=== PATIENT | male | born 1985 | race Caucasian/White ===

== ENCOUNTER 2018-01-28 14:41 | Inpatient (IN) | payer SELFPAY ==
[2018-01-28] VITALS (13 sets, daily range): BP systolic 110–129; BP diastolic 57–82; PULSE 72–91; RESP 18–30; TEMP 36–36.6; O2SAT 90–98
--- NOTE | 2018-01-28 15:21 | NUR.NOTE ---
on exam with MD pt. denies need for gang rider. Pt. admits to RLQ that started today, and a week or so of fevers, chills, diarrhea, difficulty breathing with exertion. Skin is pink, warm and dry.
[2018-01-28 15:34] LABS: Bilirubin Negative (Negative); Blood Negative (Negative); Clarity Clear; Glucose Negative (Negative); Ketones Negative (Negative); Leukocyte Esterase Negative (Negative); Nitrite Negative (Negative); Urobilinogen 0.2 EU/dL (Up TO 0.2); pH 5.5 (5-8)
--- NOTE | 2018-01-28 15:45 | DI.CT_ITS ---
SYMPTOM/DIAGNOSIS: RLQ PAIN, R/O APPENDICITIS CT ABDOMEN AND PELVIS: CT scan of the abdomen and pelvis was performed following the uneventful administration of intravenous contrast material. There are bilateral basilar infiltrates in the lower lobes. The liver, spleen, gallbladder, bile ducts, pancreas and adrenal glands are unremarkable. The kidneys show normal and symmetric enhancement. No evidence of a solid renal mass or obstruction. The urinary bladder is intact. The reproductive organs are unremarkable. The appendix appears dilated measuring 0.9 cm. Mild periappendiceal inflammatory changes are seen. No abscess or free air is present. The remainder of the bowel is unremarkable. No acute abnormality is seen in the bones. IMPRESSION: 1. Findings to suggest concern for early acute appendicitis. No abscess or free air. 2. Bilateral lower lobe infiltrates which may represent atelectasis or pneumonia.
[2018-01-28 15:47] LABS: Abs Immature Grans 0.02 k/cumm (0.0-0.09); Absolute Basophil Count 0.01 k/cumm (0.0-0.2); Absolute Eosinophil Count 0.02 k/cumm (0.0-0.7); Absolute Lymphocyte Count 1.11 k/cumm (1.2-3.4); Absolute Monocyte Count 0.53 k/cumm (0.11-0.7); Absolute Neutrophil Count 8.95 k/cumm (1.2-6.7); Basophils % 0.1; Eosinophils % 0.2; HCT 45.5 % (40.0-50.0); HGB 15.3 g/dL (13.5-17.5); Immature Grans % 0.2; Lymphocytes % 10.4; Mean Corp. HGB Concentration 33.6 g/dL (32.0-36.0); Mean Corpuscular Volume 89.2 fL (80-95); Mean Platelet Volume 12.9 fL (8.0-11.0); Neutrophils % 84.1; Platelet Count 172 x1000/uL (130-400); RBC Distribution Width 13.7 % (11.8-14.1); White Blood Cell Count 10.64 k/cumm (4.4-10.8)
--- NOTE | 2018-01-28 15:55 | DI.RAD_ITS ---
SYMPTOM/DIAGNOSIS: COUGH, SOB, R/O ACUTE DISEASE CHEST X-RAY: PA and lateral. No priors Heart size and pulmonary vasculature are within normal limits. There are hazy densities seen in the lower lobes bilaterally with minimal pleural visual thickening. No gross effusions or pneumothoraces are identified. The bones are intact. IMPRESSION: Findings suspicious for interstitial lung disease. This may represent acute disease. Chronic disease cannot be excluded.
[2018-01-28 15:59] LABS: ALT 22 U/L (12-78); AST 26 U/L (15-37); Albumin 3.3 g/dL (3.4-5.0); Alkaline Phosphatase 98 U/L (46-116); Anion Gap 8.6 mmol/L (3-11); BUN 14 mg/dL (7-18); Bilirubin, Total 0.5 mg/dL (0.2-1.0); CO2 25.4 mmol/L (21.0-32.0); Calcium 8.6 mg/dL (8.5-10.1); Chloride 102 mmol/L (98-107); Glucose 101 mg/dL (70-100); Sodium 136 mmol/L (136-145)
--- NOTE | 2018-01-28 16:19 | DI.VRAD_ITS ---
EXAM: CT Abdomen and Pelvis With Contrast EXAM DATE/TIME: 01/28/2018 3:56 PM CLINICAL HISTORY: 32 years old, male; Pain; Abdominal pain; Localized; Right lower quadrant (rlq); Patient HX: Rlq abd pain, R/O appendicitis. ; Additional info: Best images obtained, patient unable to follow breathing instructions after telling him to hold breath during exam. Repeated exam best images obtained. TECHNIQUE: Axial computed tomography images of the abdomen and pelvis with intravenous contrast. All CT scans at this facility use at least one of these dose optimization techniques: automated exposure control; mA and/or kV adjustment per patient size (includes targeted exams where dose is matched to clinical indication); or iterative reconstruction. Coronal and sagittal reformatted images were created and reviewed. CONTRAST: 100 ml of omnipaque 350 administered intravenously. COMPARISON: No relevant prior studies available. FINDINGS: Lower thorax: Bilateral lower lobe opacities are present and consistent with dependent atelectasis and/or posterior consolidation. ABDOMEN: Liver: Unremarkable. No mass. Gallbladder and bile ducts: Unremarkable. No calcified stones. No ductal dilation. Pancreas: Unremarkable. No ductal dilation. Spleen: Unremarkable. No splenomegaly. Adrenals: Normal. No mass. Kidneys and ureters: Unremarkable. No stones. No hydronephrosis. Stomach and bowel: Unremarkable. No obstruction. No mucosal thickening. Appendix: The appendix is dilated and there is mild stranding and haziness in the periappendiceal fat. The findings are consistent with early acute appendicitis. PELVIS: Bladder: Unremarkable as visualized. Reproductive: Unremarkable as visualized. ABDOMEN and PELVIS: Intraperitoneal space: Unremarkable. No free air. No significant fluid collection. Bones/joints: No acute fracture. Soft tissues: Unremarkable. Vasculature: Unremarkable. No abdominal aortic aneurysm. Lymph nodes: Mild bilateral hilar lymphadenopathy is present. IMPRESSION: 1. Early acute appendicitis. 2. Bilateral lower lobe atelectasis/consolidation. Dictated and Authenticated by: Isauro Pro MD. Ordering:SHONDA Smith MD
--- NOTE | 2018-01-28 16:19 | W.ED.GENAD ---
Discharge Plan Disposition Patient Disposition: [facility] INPATIENT Condition: Stable Discharge Details Chief Complaint: GenMedical Clinical Impression: Acute appendicitis, Lung consolidation Attending Provider: Shayan Gutierres Primary Care Provider: Chelsie Gonzalez ED Provider: Sarah Cloud Medical Decision Making 32yo M with no past medical history who presents with sore throat for 1-1/2 weeks, hot and cold chills, and right lower quadrant abdominal pain with vomiting diarrhea since last night. Normal ENT exam. No submandibular swelling. No stridor, airway intact. Diminished breath sounds at bases bilaterally. No wheezing or accessory muscle use. Patient has tenderness palpation in the right lower quadrant with rebound tenderness. No rigidity. Differential diagnosis includes viral syndrome, pneumonia, acute appendicitis, gastritis, gastroenteritis. Will place an IV, bolus IV fluids, labs, urinalysis, chest x-ray, CT abdomen and pelvis, GI cocktail. Pt speaks malaysian as primary language but also speaks maltese. He is able to verbalize back to me the plan and he declines park interpreter at this time. 1620 --labs and imaging reviewed. Labs unremarkable. Normal white blood cell count. Chest x-ray notes possible mild interstitial lung disease, question of acute versus chronic. CT abdomen notes an early acute appendicitis. Imaging was discussed [facility]rad radiologist - chest x-ray may be an underlying interstitial process, atelectasis, dependent edema or pneumonia. Question possible sarcoidosis and again unsure if this is acute or chronic. In the setting of normal vitals, labs, this may not be acute. Radiologist does not see utility in CT chest at this time. Not clinically c/w PE. 1630 -- Surgeon was paged and she is currently in the operating room and will call back. 1715 -- d/w Dr. Gutierres who is in the emergency department. D/w pt through park interpreter so he understand the plan of surgery. As pt has normal vitals, wbc, no respiratory distress, will plan for outpatient f/u of lung/cxr findings. Was able to discuss again the plan with patient, this time through an park interpreter so he fully understood. With further questioning of his symptoms, patient denied any chest pain or shortness of breath at this time, but stated that he occasionally felt pain with deep breath. When I discussed with vrad radiologist earlier, he did not think any findings in chest on ct abdomen were c/w PE. However, that would be concern regarding history. Pt has no tachycardia, normal RR and O2 sat and no PE risk factors. Wells score low. PERC negative. Do not want to expose pt to another CT with contrast within a 24 hour period. Will obtain a d dimer. 1745 --d-dimer negative. Medical Records Medical records reviewed: Yes I reviewed the patient's medical records. Imaging Data Radiologic Study: Attestation: I personally reviewed and interpreted this imaging study as follows: Radiologist's impression: XR Chest, 2 Views EXAM DATE/TIME: 01/28/2018 4:03 PM CLINICAL HISTORY: 32 years old, male; Signs and symptoms; Cough and shortness of breath; Additional info: Best images obtained, patient unable to follow breathing instructions after telling him to hold breath during exam. Repeated exam best images obtained. TECHNIQUE: XR of the chest, 2 views. COMPARISON: No relevant prior studies available. FINDINGS: Tubes, catheters and devices: Lungs: Mild hazy density in the posterior lower lobes bilaterally. Mildly prominent reticular markings and minimal fissure thickening. There is questionable minimal septal line thickening in the right lateral lower lung zone. The findings raise the suspicion for an underlying interstitial lung process (acute versus chronic). Pleural space: No pleural effusion or pneumothorax. Heart/Mediastinum: The cardiomediastinal silhouette and pulmonary vasculature are within normal limits. Bones/joints: Unremarkable. IMPRESSION: Findings suspicious for mild interstitial lung disease (acute versus chronic). Radiologic Study #2: Attestation: I personally reviewed and interpreted this imaging study as follows: Radiologist's impression: CT Abdomen and Pelvis With Contrast EXAM DATE/TIME: 01/28/2018 3:56 PM FINDINGS: AUDREY ELLER Preliminary Radiology Report GEAR NICKER (QA) DISCREPANCY? If there is a discrepancy between the preliminary and final interpretation, please notify [facility] via [email or web address]. If you do not have access to our QA portal, call our QA team at [phone] CONFIDENTIALITY STATEMENT This report is intended only for the use of the referring physician, and only in accordance with law, If you received this in error, call [phone] Page 2 of 2 Lower thorax: Bilateral lower lobe opacities are present and consistent with dependent atelectasis and/or posterior consolidation. ABDOMEN: Liver: Unremarkable. No mass. Gallbladder and bile ducts: Unremarkable. No calcified stones. No ductal dilation. Pancreas: Unremarkable. No ductal dilation. Spleen: Unremarkable. No splenomegaly. Adrenals: Normal. No mass. Kidneys and ureters: Unremarkable. No stones. No hydronephrosis. Stomach and bowel: Unremarkable. No obstruction. No mucosal thickening. Appendix: The appendix is dilated and there is mild stranding and haziness in the periappendiceal fat. The findings are consistent with early acute appendicitis. PELVIS: Bladder: Unremarkable as visualized. Reproductive: Unremarkable as visualized. ABDOMEN and PELVIS: Intraperitoneal space: Unremarkable. No free air. No significant fluid collection. Bones/joints: No acute fracture. Soft tissues: Unremarkable. Vasculature: Unremarkable. No abdominal aortic aneurysm. Lymph nodes: Mild bilateral hilar lymphadenopathy is present. IMPRESSION: 1. Early acute appendicitis. 2. Bilateral lower lobe atelectasis/consolidation. Lab Data Lab results reviewed: Yes I reviewed the patient's lab results. 01/28/18 16:30 Pharynx Throat Culture - Pending Laboratory Tests Range/Units 01/28/18 01/28/18 01/28/18 15:31 15:40 15:40 WBC (4.4-10.8) k/cumm 10.64 RBC (4.50-6.00) m/cumm 5.10 Hgb (13.5-17.5) g/dL 15.3 Hct (40.0-50.0) % 45.5 MCV (80-95) fL 89.2 MCH (27.0-33.0) pg 30.0 MCHC (32.0-36.0) g/dL 33.6 RDW (11.8-14.1) % 13.7 Plt Count (130-400) x1000/uL 172 MPV (8.0-11.0) fL 12.9 H Immature Gran % 0.2 Neutrophils % 84.1 Lymphocytes % 10.4 Monocytes % 5.0 Eosinophils % 0.2 Basophils % 0.1 Absolute Neutrophils (1.2-6.7) k/cumm 8.95 H Absolute Lymphocytes (1.2-3.4) k/cumm 1.11 L Absolute Monocytes (0.11-0.7) k/cumm 0.53 Absolute Eosinophils (0.0-0.7) k/cumm 0.02 Absolute Basophils (0.0-0.2) k/cumm 0.01 Sodium (136-145) mmol/L 136 Potassium (3.5-5.1) mmol/L 4.0 Chloride (98-107) mmol/L 102 Carbon Dioxide (21.0-32.0) mmol/L 25.4 Anion Gap (3-11) mmol/L 8.6 BUN (7-18) mg/dL 14 Creatinine (0.70-1.30) mg/dL 1.00 Estimated GFR/1.73 m2 (mL/min/1.73m2) >= 60.00 Glucose (70-100) mg/dL 101 H Calcium (8.5-10.1) mg/dL 8.6 Total Bilirubin (0.2-1.0) mg/dL 0.5 AST (15-37) U/L 26 ALT (12-78) U/L 22 Alkaline Phosphatase (46-116) U/L 98 Total Protein (6.4-8.2) g/dL 9.0 H Albumin (3.4-5.0) g/dL 3.3 L Urine Color (Yellow) Yellow Urine Clarity Clear Urine pH (5-8) 5.5 Ur Specific Randolph (1.005-1.025) 1.010 Urine Protein (Negative) mg/dL Negative Urine Ketones (Negative) mg/dL Negative Urine Blood (Negative) Negative Urine Nitrite (Negative) Negative Urine Bilirubin (Negative) Negative Urine Urobilinogen (Up TO 0.2) EU/dL 0.2 Ur Leukocyte Esterase (Negative) Negative Urine Glucose (Negative) mg/dL Negative HPI General Mode of arrival: ambulatory. Date/Time Provider Initiated Documentation: 01/28/18 15:10. Limitations to Documentation: no limitations. Information obtained by: patient. HPI Narrative: 32-year-old male with no past medical history who presents with multiple complaints. Complaining of right lower quadrant pain starting today. Also admits to vomiting and diarrhea two times each since last night. Also complaining of sore throat for the past 1-1/2 weeks, hot and cold chills, occasional cough and shortness of breath. Patient has been taking ibuprofen. Patient denies any rash. 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 Related Data Home Medications Medication Instructions Recorded Confirmed bisacodyl 5 mg PO ONCE #10 tabec 11/04/12 ondansetron HCl 4 mg PO Q6H #10 tab 11/04/12 Previous Rx's Medication Instructions Recorded bisacodyl 5 mg PO ONCE #10 tabec 11/04/12 ondansetron HCl 4 mg PO Q6H #10 tab 11/04/12 Allergies Allergy/AdvReac Type Severity Reaction Status Date / Time No Known Allergies Allergy Unverified 11/04/12 15:00 General Stated Complaint: GenMedical NOREEN: 3 Review of Systems Review of Systems All systems reviewed & are unremarkable except as noted in HPI and below Constitutional Reports as per HPI, Reports chills and Denies fever(s) Eyes Denies blurry vision ENT Denies dizziness, Denies sore throat and Denies throat swelling Cardiovascular Denies chest pain and Reports dyspnea Respiratory Reports cough and Reports dyspnea Gastrointestinal Reports abdominal pain, Reports diarrhea and Reports vomiting Genitourinary Denies hematuria and Denies dysuria Musculoskeletal Denies back pain and Denies numbness Integumentary/Breasts Denies lesions and Denies rash Neurologic Denies dizziness and Denies numbness Allergic/Immunologic Denies throat swelling PFSH Social History Smoking/Tobacco Use Status: Never alcohol intake: current alcohol intake frequency: a few times a month substance use type: does not use Exam Const General: cooperative, healthy appearing and no acute distress HENMT Head: normal to inspection Face and sinus: normal facial exam Eyes General: appearance normal, both eyes and all related structures Pupils: PERRL EOM: EOM intact bilaterally Neck Neck: normal visual inspection and No submandibular swelling Lymphatic: no lymphadenopathy noted Chest Chest: normal inspection of the chest and no tenderness Resp Effort & Inspection: normal respiratory effort and able to speak in complete sentences Auscultation: clear to auscultation bilaterally Cardio Rate: regular rate Rhythm: regular rhythm GI Inspection: normal to inspection Palpation: soft, not firm, not rigid and tender in the RLQ and with rebound tenderness Auscultation: normal bowel sounds Male General Exam: Yes normal external exam Skin General skin exam: no rashes or lesions noted Neuro General: alert, awake and oriented x3 Cognition: normal cognition Speech: speech normal Motor: muscle tone normal throughout Sensory Exam: no sensory deficits noted Extrem General: normal to inspection, full ROM, normal capillary refill and no edema Psych Appearance: grossly normal Mental Status: mental status grossly normal Speech and Movement: speech and movement normal Affect: normal affect Course Vital Signs Temperature 97.9 F 01/28/18 15:01 Pulse 91 H 01/28/18 15:01 Respiratory Rate 18 01/28/18 15:01 Blood Pressure 110/65 01/28/18 15:01 Pulse Oximetry 97 01/28/18 15:01 Temperature 97.9 F 01/28/18 15:01 Temperature Source Temporal Artery Scan 01/28/18 15:01 Pulse 91 H 01/28/18 15:01 Respiratory Rate 18 01/28/18 15:01 Respiratory Effort 01/28/18 15:23 Respiratory Depth Normal 01/28/18 15:23 Respiratory Pattern Normal 01/28/18 15:23 Blood Pressure 110/65 01/28/18 15:01 Blood Pressure Position Sitting 01/28/18 15:01 Pulse Oximetry 97 01/28/18 15:01 Oxygen Delivery Method Room Air 01/28/18 15:01 Oxygen Flow Rate 0 01/28/18 15:01 Lab/Test Results Lab/Test Results: 01/28/18 16:18 Pharynx Throat Culture - Pending Laboratory Tests Range/Units 01/28/18 01/28/18 01/28/18 15:31 15:40 15:40 WBC (4.4-10.8) k/cumm 10.64 RBC (4.50-6.00) m/cumm 5.10 Hgb (13.5-17.5) g/dL 15.3 Hct (40.0-50.0) % 45.5 MCV (80-95) fL 89.2 MCH (27.0-33.0) pg 30.0 MCHC (32.0-36.0) g/dL 33.6 RDW (11.8-14.1) % 13.7 Plt Count (130-400) x1000/uL 172 MPV (8.0-11.0) fL 12.9 H Immature Gran % 0.2 Neutrophils % 84.1 Lymphocytes % 10.4 Monocytes % 5.0 Eosinophils % 0.2 Basophils % 0.1 Absolute Neutrophils (1.2-6.7) k/cumm 8.95 H Absolute Lymphocytes (1.2-3.4) k/cumm 1.11 L Absolute Monocytes (0.11-0.7) k/cumm 0.53 Absolute Eosinophils (0.0-0.7) k/cumm 0.02 Absolute Basophils (0.0-0.2) k/cumm 0.01 Sodium (136-145) mmol/L 136 Potassium (3.5-5.1) mmol/L 4.0 Chloride (98-107) mmol/L 102 Carbon Dioxide (21.0-32.0) mmol/L 25.4 Anion Gap (3-11) mmol/L 8.6 BUN (7-18) mg/dL 14 Creatinine (0.70-1.30) mg/dL 1.00 Estimated GFR/1.73 m2 (mL/min/1.73m2) >= 60.00 Glucose (70-100) mg/dL 101 H Calcium (8.5-10.1) mg/dL 8.6 Total Bilirubin (0.2-1.0) mg/dL 0.5 AST (15-37) U/L 26 ALT (12-78) U/L 22 Alkaline Phosphatase (46-116) U/L 98 Total Protein (6.4-8.2) g/dL 9.0 H Albumin (3.4-5.0) g/dL 3.3 L Urine Color (Yellow) Yellow Urine Clarity Clear Urine pH (5-8) 5.5 Ur Specific Randolph (1.005-1.025) 1.010 Urine Protein (Negative) mg/dL Negative Urine Ketones (Negative) mg/dL Negative Urine Blood (Negative) Negative Urine Nitrite (Negative) Negative Urine Bilirubin (Negative) Negative Urine Urobilinogen (Up TO 0.2) EU/dL 0.2 Ur Leukocyte Esterase (Negative) Negative Urine Glucose (Negative) mg/dL Negative POC Strep Test-LOUIE(Rapid) Start: 01/28/18 15:33 Freq: .Rapid Strep Test Status: Active Protocol: Document 01/28/18 16:04 MP (Rec: 01/28/18 16:04 [email or web address]) Strep test-LOUIE(Rapid)-POC POC-Strep test-LOUIE (Rapid) Negative POC-Strep test-LOUIE (Rapid) Negative
--- NOTE | 2018-01-28 16:22 | ED.GENADUL_ITS ---
Discharge Plan Disposition Patient Disposition: [facility] INPATIENT Condition: Stable Discharge Details Chief Complaint: GenMedical Clinical Impression: Acute appendicitis, Lung consolidation Attending Provider: Shayan Gutierres Primary Care Provider: Chelsie Gonzalez ED Provider: Sarah Cloud Medical Decision Making 32yo M with no past medical history who presents with sore throat for 1-1/2 weeks, hot and cold chills, and right lower quadrant abdominal pain with vomiting diarrhea since last night. Normal ENT exam. No submandibular swelling. No stridor, airway intact. Diminished breath sounds at bases bilaterally. No wheezing or accessory muscle use. Patient has tenderness palpation in the right lower quadrant with rebound tenderness. No rigidity. Differential diagnosis includes viral syndrome, pneumonia, acute appendicitis, gastritis, gastroenteritis. Will place an IV, bolus IV fluids, labs, urinalysis, chest x-ray, CT abdomen and pelvis, GI cocktail. Pt speaks estonian as primary language but also speaks tanzanian. He is able to verbalize back to me the plan and he declines rn medical surgical at this time. 1620 --labs and imaging reviewed. Labs unremarkable. Normal white blood cell count. Chest x-ray notes possible mild interstitial lung disease, question of acute versus chronic. CT abdomen notes an early acute appendicitis. Imaging was discussed vrad radiologist - chest x-ray may be an underlying interstitial process, atelectasis, dependent edema or pneumonia. Question possible sarcoidosis and again unsure if this is acute or chronic. In the setting of normal vitals, labs, this may not be acute. Radiologist does not see utility in CT chest at this time. Not clinically c/w PE. 1630 -- Surgeon was paged and she is currently in the operating room and will call back. 1715 -- d/w Dr. Gutierres who is in the emergency department. D/w pt through rn medical surgical so he understand the plan of surgery. As pt has normal vitals, wbc, no respiratory distress, will plan for outpatient f/u of lung/cxr findings. Was able to discuss again the plan with patient, this time through an rn medical surgical so he fully understood. With further questioning of his symptoms, patient denied any chest pain or shortness of breath at this time, but stated that he occasionally felt pain with deep breath. When I discussed with vrad radiologist earlier, he did not think any findings in chest on ct abdomen were c/w PE. However, that would be concern regarding history. Pt has no tachycardia, normal RR and O2 sat and no PE risk factors. Wells score low. PERC negative. Do not want to expose pt to another CT with contrast within a 24 hour period. Will obtain a d dimer. 1745 --d-dimer negative. Medical Records Medical records reviewed: Yes I reviewed the patient's medical records. Imaging Data Radiologic Study: Attestation: I personally reviewed and interpreted this imaging study as follows: Radiologist's impression: XR Chest, 2 Views EXAM DATE/TIME: 01/28/2018 4:03 PM CLINICAL HISTORY: 32 years old, male; Signs and symptoms; Cough and shortness of breath; Additional info: Best images obtained, patient unable to follow breathing instructions after telling him to hold breath during exam. Repeated exam best images obtained. TECHNIQUE: XR of the chest, 2 views. COMPARISON: No relevant prior studies available. FINDINGS: Tubes, catheters and devices: Lungs: Mild hazy density in the posterior lower lobes bilaterally. Mildly prominent reticular markings and minimal fissure thickening. There is questionable minimal septal line thickening in the right lateral lower lung zone. The findings raise the suspicion for an underlying interstitial lung process (acute versus chronic). Pleural space: No pleural effusion or pneumothorax. Heart/Mediastinum: The cardiomediastinal silhouette and pulmonary vasculature are within normal limits. Bones/joints: Unremarkable. IMPRESSION: Findings suspicious for mild interstitial lung disease (acute versus chronic). Radiologic Study #2: Attestation: I personally reviewed and interpreted this imaging study as follows: Radiologist's impression: CT Abdomen and Pelvis With Contrast EXAM DATE/TIME: 01/28/2018 3:56 PM FINDINGS: AUDREY ELLER Preliminary Radiology Report [employer] (QA) DISCREPANCY? If there is a discrepancy between the preliminary and final interpretation, please notify [facility] via [email or web address]. If you do not have access to our QA portal, call our QA team at [phone] CONFIDENTIALITY STATEMENT This report is intended only for the use of the referring physician, and only in accordance with law, If you received this in error, call [phone] Page 2 of 2 Lower thorax: Bilateral lower lobe opacities are present and consistent with dependent atelectasis and/or posterior consolidation. ABDOMEN: Liver: Unremarkable. No mass. Gallbladder and bile ducts: Unremarkable. No calcified stones. No ductal dilation. Pancreas: Unremarkable. No ductal dilation. Spleen: Unremarkable. No splenomegaly. Adrenals: Normal. No mass. Kidneys and ureters: Unremarkable. No stones. No hydronephrosis. Stomach and bowel: Unremarkable. No obstruction. No mucosal thickening. Appendix: The appendix is dilated and there is mild stranding and haziness in the periappendiceal fat. The findings are consistent with early acute appendicitis. PELVIS: Bladder: Unremarkable as visualized. Reproductive: Unremarkable as visualized. ABDOMEN and PELVIS: Intraperitoneal space: Unremarkable. No free air. No significant fluid collection. Bones/joints: No acute fracture. Soft tissues: Unremarkable. Vasculature: Unremarkable. No abdominal aortic aneurysm. Lymph nodes: Mild bilateral hilar lymphadenopathy is present. IMPRESSION: 1. Early acute appendicitis. 2. Bilateral lower lobe atelectasis/consolidation. Lab Data Lab results reviewed: Yes I reviewed the patient's lab results. 01/28/18 16:30 Pharynx Throat Culture - Pending Laboratory Tests Range/Units 01/28/18 01/28/18 01/28/18 15:31 15:40 15:40 WBC (4.4-10.8) k/cumm 10.64 RBC (4.50-6.00) m/cumm 5.10 Hgb (13.5-17.5) g/dL 15.3 Hct (40.0-50.0) % 45.5 MCV (80-95) fL 89.2 MCH (27.0-33.0) pg 30.0 MCHC (32.0-36.0) g/dL 33.6 RDW (11.8-14.1) % 13.7 Plt Count (130-400) x1000/uL 172 MPV (8.0-11.0) fL 12.9 H Immature Gran % 0.2 Neutrophils % 84.1 Lymphocytes % 10.4 Monocytes % 5.0 Eosinophils % 0.2 Basophils % 0.1 Absolute Neutrophils (1.2-6.7) k/cumm 8.95 H Absolute Lymphocytes (1.2-3.4) k/cumm 1.11 L Absolute Monocytes (0.11-0.7) k/cumm 0.53 Absolute Eosinophils (0.0-0.7) k/cumm 0.02 Absolute Basophils (0.0-0.2) k/cumm 0.01 Sodium (136-145) mmol/L 136 Potassium (3.5-5.1) mmol/L 4.0 Chloride (98-107) mmol/L 102 Carbon Dioxide (21.0-32.0) mmol/L 25.4 Anion Gap (3-11) mmol/L 8.6 BUN (7-18) mg/dL 14 Creatinine (0.70-1.30) mg/dL 1.00 Estimated GFR/1.73 m2 (mL/min/1.73m2) >= 60.00 Glucose (70-100) mg/dL 101 H Calcium (8.5-10.1) mg/dL 8.6 Total Bilirubin (0.2-1.0) mg/dL 0.5 AST (15-37) U/L 26 ALT (12-78) U/L 22 Alkaline Phosphatase (46-116) U/L 98 Total Protein (6.4-8.2) g/dL 9.0 H Albumin (3.4-5.0) g/dL 3.3 L Urine Color (Yellow) Yellow Urine Clarity Clear Urine pH (5-8) 5.5 Ur Specific [place] (1.005-1.025) 1.010 Urine Protein (Negative) mg/dL Negative Urine Ketones (Negative) mg/dL Negative Urine Blood (Negative) Negative Urine Nitrite (Negative) Negative Urine Bilirubin (Negative) Negative Urine Urobilinogen (Up TO 0.2) EU/dL 0.2 Ur Leukocyte Esterase (Negative) Negative Urine Glucose (Negative) mg/dL Negative HPI General Mode of arrival: ambulatory . Date/Time Provider Initiated Documentation: 01/28/18 15:10 . Limitations to Documentation: no limitations . Information obtained by: patient . HPI Narrative: 32-year-old male with no past medical history who presents with multiple complaints. Complaining of right lower quadrant pain starting today. Also admits to vomiting and diarrhea two times each since last night. Also complaining of sore throat for the past 1-1/2 weeks, hot and cold chills, occasional cough and shortness of breath. Patient has been taking ibuprofen. Patient denies any rash. 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 Related Data Home Medications Medication Instructions Recorded Confirmed bisacodyl 5 mg PO ONCE #10 tabec 11/04/12 ondansetron HCl 4 mg PO Q6H #10 tab 11/04/12 Previous Rx's Medication Instructions Recorded bisacodyl 5 mg PO ONCE #10 tabec 11/04/12 ondansetron HCl 4 mg PO Q6H #10 tab 11/04/12 Allergies Allergy/AdvReac Type Severity Reaction Status Date / Time No Known Allergies Allergy Unverified 11/04/12 15:00 General Stated Complaint: GenMedical NOREEN: 3 Review of Systems Review of Systems All systems reviewed & are unremarkable except as noted in HPI and below Constitutional Reports as per HPI, Reports chills and Denies fever(s) Eyes Denies blurry vision ENT Denies dizziness, Denies sore throat and Denies throat swelling Cardiovascular Denies chest pain and Reports dyspnea Respiratory Reports cough and Reports dyspnea Gastrointestinal Reports abdominal pain, Reports diarrhea and Reports vomiting Genitourinary Denies hematuria and Denies dysuria Musculoskeletal Denies back pain and Denies numbness Integumentary/Breasts Denies lesions and Denies rash Neurologic Denies dizziness and Denies numbness Allergic/Immunologic Denies throat swelling PFSH Social History Smoking/Tobacco Use Status: Never alcohol intake: current alcohol intake frequency: a few times a month substance use type: does not use Exam Const General: cooperative, healthy appearing and no acute distress HENMT Head: normal to inspection Face and sinus: normal facial exam Eyes General: appearance normal, both eyes and all related structures Pupils: PERRL EOM: EOM intact bilaterally Neck Neck: normal visual inspection and No submandibular swelling Lymphatic: no lymphadenopathy noted Chest Chest: normal inspection of the chest and no tenderness Resp Effort & Inspection: normal respiratory effort and able to speak in complete sentences Auscultation: clear to auscultation bilaterally Cardio Rate: regular rate Rhythm: regular rhythm GI Inspection: normal to inspection Palpation: soft, not firm, not rigid and tender in the RLQ and with rebound tenderness Auscultation: normal bowel sounds Male General Exam: Yes normal external exam Skin General skin exam: no rashes or lesions noted Neuro General: alert, awake and oriented x3 Cognition: normal cognition Speech: speech normal Motor: muscle tone normal throughout Sensory Exam: no sensory deficits noted Extrem General: normal to inspection, full ROM, normal capillary refill and no edema Psych Appearance: grossly normal Mental Status: mental status grossly normal Speech and Movement: speech and movement normal Affect: normal affect Course Vital Signs Temperature 97.9 F 01/28/18 15:01 Pulse 91 H 01/28/18 15:01 Respiratory Rate 18 01/28/18 15:01 Blood Pressure 110/65 01/28/18 15:01 Pulse Oximetry 97 01/28/18 15:01 Temperature 97.9 F 01/28/18 15:01 Temperature Source Temporal Artery Scan 01/28/18 15:01 Pulse 91 H 01/28/18 15:01 Respiratory Rate 18 01/28/18 15:01 Respiratory Effort 01/28/18 15:23 Respiratory Depth Normal 01/28/18 15:23 Respiratory Pattern Normal 01/28/18 15:23 Blood Pressure 110/65 01/28/18 15:01 Blood Pressure Position Sitting 01/28/18 15:01 Pulse Oximetry 97 01/28/18 15:01 Oxygen Delivery Method Room Air 01/28/18 15:01 Oxygen Flow Rate 0 01/28/18 15:01 Lab/Test Results Lab/Test Results: 01/28/18 16:18 Pharynx Throat Culture - Pending Laboratory Tests Range/Units 01/28/18 01/28/18 01/28/18 15:31 15:40 15:40 WBC (4.4-10.8) k/cumm 10.64 RBC (4.50-6.00) m/cumm 5.10 Hgb (13.5-17.5) g/dL 15.3 Hct (40.0-50.0) % 45.5 MCV (80-95) fL 89.2 MCH (27.0-33.0) pg 30.0 MCHC (32.0-36.0) g/dL 33.6 RDW (11.8-14.1) % 13.7 Plt Count (130-400) x1000/uL 172 MPV (8.0-11.0) fL 12.9 H Immature Gran % 0.2 Neutrophils % 84.1 Lymphocytes % 10.4 Monocytes % 5.0 Eosinophils % 0.2 Basophils % 0.1 Absolute Neutrophils (1.2-6.7) k/cumm 8.95 H Absolute Lymphocytes (1.2-3.4) k/cumm 1.11 L Absolute Monocytes (0.11-0.7) k/cumm 0.53 Absolute Eosinophils (0.0-0.7) k/cumm 0.02 Absolute Basophils (0.0-0.2) k/cumm 0.01 Sodium (136-145) mmol/L 136 Potassium (3.5-5.1) mmol/L 4.0 Chloride (98-107) mmol/L 102 Carbon Dioxide (21.0-32.0) mmol/L 25.4 Anion Gap (3-11) mmol/L 8.6 BUN (7-18) mg/dL 14 Creatinine (0.70-1.30) mg/dL 1.00 Estimated GFR/1.73 m2 (mL/min/1.73m2) >= 60.00 Glucose (70-100) mg/dL 101 H Calcium (8.5-10.1) mg/dL 8.6 Total Bilirubin (0.2-1.0) mg/dL 0.5 AST (15-37) U/L 26 ALT (12-78) U/L 22 Alkaline Phosphatase (46-116) U/L 98 Total Protein (6.4-8.2) g/dL 9.0 H Albumin (3.4-5.0) g/dL 3.3 L Urine Color (Yellow) Yellow Urine Clarity Clear Urine pH (5-8) 5.5 Ur Specific [place] (1.005-1.025) 1.010 Urine Protein (Negative) mg/dL Negative Urine Ketones (Negative) mg/dL Negative Urine Blood (Negative) Negative Urine Nitrite (Negative) Negative Urine Bilirubin (Negative) Negative Urine Urobilinogen (Up TO 0.2) EU/dL 0.2 Ur Leukocyte Esterase (Negative) Negative Urine Glucose (Negative) mg/dL Negative POC Strep Test-LOUIE(Rapid) Start: 01/28/18 15:33 Freq: .Rapid Strep Test Status: Active Protocol: Document 01/28/18 16:04 MP (Rec: 01/28/18 16:04 [email or web address]) Strep test-LOUIE(Rapid)-POC POC-Strep test-LOUIE (Rapid) Negative POC-Strep test-LOUIE (Rapid) Negative
[2018-01-28] MEDS: Normal Saline 1,000 ML 1000 ML IV (16:25)
[2018-01-28] MEDS: Mylanta Suspension 30 ML CUP (16:25)
--- NOTE | 2018-01-28 16:28 | DI.VRAD_ITS ---
EXAM: XR Chest, 2 Views EXAM DATE/TIME: 01/28/2018 4:03 PM CLINICAL HISTORY: 32 years old, male; Signs and symptoms; Cough and shortness of breath; Additional info: Best images obtained, patient unable to follow breathing instructions after telling him to hold breath during exam. Repeated exam best images obtained. TECHNIQUE: XR of the chest, 2 views. COMPARISON: No relevant prior studies available. FINDINGS: Tubes, catheters and devices: Lungs: Mild hazy density in the posterior lower lobes bilaterally. Mildly prominent reticular markings and minimal fissure thickening. There is questionable minimal septal line thickening in the right lateral lower lung zone. The findings raise the suspicion for an underlying interstitial lung process (acute versus chronic). Pleural space: No pleural effusion or pneumothorax. Heart/Mediastinum: The cardiomediastinal silhouette and pulmonary vasculature are within normal limits. Bones/joints: Unremarkable. IMPRESSION: Findings suspicious for mild interstitial lung disease (acute versus chronic). I personally discussed the findings with Sarah Cloud on 01/28/2018 at 4:27 PM EST by telephone conference call. Dictated and Authenticated by: Isauro Pro MD. Ordering:SHONDA Smith MD
--- NOTE | 2018-01-28 17:03 | NUR.NOTE ---
Surgeon is at the bedside assessing patient.
[2018-01-28] MEDS: MetroNIDAZOLE 500 MG/100 ML BAG 100 MG IVPB (17:20)
--- NOTE | 2018-01-28 17:59 | W.PM.HP.N ---
Date of service: 01/28/18 Time of Service: 17:59 Assessment and Plan (1) Acute appendicitis: Current visit: Yes Status: Acute Early acute appendicitis on CT discussed with patient via moisture machine tender service. We discussed the rationale and procedure for a laparoscopic appendectomy. Operative procedure with risks, benefits, and alternatives including but not limited to risks with anesthesia, bleeding, infecction, scarring, conversion to open, injury to adjacent structures and organs, and possible additional procedures all discussed. All questions answered. We discussed postop care including no lifting > 20# x 2 weeks. We discussed anticipated discharge home tomorrow pending course. Patient verbalized via moisture machine tender that he wished to proceed. History of Present Illness Chief Complaint: Abdominal pain Narrative: 32 y/o English male seen with his coworker in the ED. 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 He notes that he is to return to [place] in 5 days. Patient understands and is somewhat conversant in Norwegian. Also utilized the language line moisture machine tender service. Patient notes that he did have a sore throat and cough for about a week or so. He thinks that he may have had a little bit of blood in his phlegm. Last night he had subjective fevers, chills, nausea, vomiting, and diarrhea. He also developed pain localized to the right lower quadrant since this morning. CT abd/pelvis in the ED was reviewed. VRADS report read as an early acute appendicitis. No phlegmon or abscess seen. WBC WNL at ~ 10k. Review of Systems Constitutional Reports system reviewed and no additional complaints, except as docu, Reports chills and Reports fever(s) ENT Reports sore throat Respiratory Reports cough Gastrointestinal Reports abdominal pain, Denies hematochezia, Denies constipation, Reports diarrhea, Reports vomiting and Denies hematemesis [facility] Social History Smoking/Tobacco Use Status: Never alcohol intake: current alcohol intake frequency: a few times a month substance use type: does not use Meds Home Medications Medication Instructions Recorded Confirmed Type bisacodyl 5 mg PO ONCE #10 tabec 11/04/12 Rx ondansetron HCl 4 mg PO Q6H #10 tab 11/04/12 Rx Allergies Allergy/AdvReac Type Severity Reaction Status Date / Time No Known Allergies Allergy Unverified 11/04/12 15:00 Exam Const General: cooperative, no acute distress and well developed Nutritional Appearance: well nourished Orientation: alert Eyes Sclera: sclerae normal Neck Neck: trachea midline, supple and no JVD Resp Effort & Inspection: normal respiratory effort and able to speak in complete sentences Cardio Jugular venous pressure: no JVD Rate: regular rate Rhythm: regular rhythm GI Inspection: non-distended Palpation: soft, not firm, no guarding, not rigid and tender in the RLQ (moderate tenderness localized to RLQ) Skin General skin exam: no rashes or lesions noted and no jaundice Neuro General: alert Speech: speech normal Results Imaging Chest x-ray: report reviewed and image reviewed Abdomen CT scan report/results: report reviewed and image reviewed CT scan - pelvis: report reviewed and image reviewed Imaging Studies: Patient Name: Ravi ELLER #: [id number]: ER Ordering Provider: : PRE ER Primary Care Provider: None,None Date of Exam: 01/28/18ex: M : 1985Age: 32 Exam(s) EXAM: XR Chest, 2 Views EXAM DATE/TIME: 01/28/2018 4:03 PM CLINICAL HISTORY: 32 years old, male; Signs and symptoms; Cough and shortness of breath; Additional info: Best images obtained, patient unable to follow breathing instructions after telling him to hold breath during exam. Repeated exam best images obtained. TECHNIQUE: XR of the chest, 2 views. COMPARISON: No relevant prior studies available. FINDINGS: Tubes, catheters and devices: Lungs: Mild hazy density in the posterior lower lobes bilaterally. Mildly prominent reticular markings and minimal fissure thickening. There is questionable minimal septal line thickening in the right lateral lower lung zone. The findings raise the suspicion for an underlying interstitial lung process (acute versus chronic). Pleural space: No pleural effusion or pneumothorax. Heart/Mediastinum: The cardiomediastinal silhouette and pulmonary vasculature are within normal limits. Bones/joints: Unremarkable. IMPRESSION: Findings suspicious for mild interstitial lung disease (acute versus chronic). I personally discussed the findings with Sarah Cloud on 01/28/2018 at 4:27 PM EST by telephone conference call. Dictated and Authenticated by: Isauro Pro MD. Ordering:SHONDA Smith MD Ordered By: CC: Dictated By: Brooks vrad 01/28/18 1603 01/28/18 1628 Transcribed By: Shirin Rosales This is privileged, confidential information intended only for the provider named. Any use or distribution by any person other than this provider is strictly prohibited. If you receive this report in error, please notify us immediately at [phone] and return the original report to us at the address above. Thank-you. Patient Name: Ravi ELLER #: [id number]: ER Ordering Provider: : PRE ER Primary Care Provider: None,None Date of Exam: 01/28/18ex: M : 1985Age: 32 Exam(s) EXAM: CT Abdomen and Pelvis With Contrast EXAM DATE/TIME: 01/28/2018 3:56 PM CLINICAL HISTORY: 32 years old, male; Pain; Abdominal pain; Localized; Right lower quadrant (rlq); Patient HX: Rlq abd pain, R/O appendicitis. ; Additional info: Best images obtained, patient unable to follow breathing instructions after telling him to hold breath during exam. Repeated exam best images obtained. TECHNIQUE: Axial computed tomography images of the abdomen and pelvis with intravenous contrast. All CT scans at this facility use at least one of these dose optimization techniques: automated exposure control; mA and/or kV adjustment per patient size (includes targeted exams where dose is matched to clinical indication); or iterative reconstruction. Coronal and sagittal reformatted images were created and reviewed. CONTRAST: 100 ml of omnipaque 350 administered intravenously. COMPARISON: No relevant prior studies available. FINDINGS: Lower thorax: Bilateral lower lobe opacities are present and consistent with dependent atelectasis and/or posterior consolidation. ABDOMEN: Liver: Unremarkable. No mass. Gallbladder and bile ducts: Unremarkable. No calcified stones. No ductal dilation. Pancreas: Unremarkable. No ductal dilation. Spleen: Unremarkable. No splenomegaly. Adrenals: Normal. No mass. Kidneys and ureters: Unremarkable. No stones. No hydronephrosis. Stomach and bowel: Unremarkable. No obstruction. No mucosal thickening. Appendix: The appendix is dilated and there is mild stranding and haziness in the periappendiceal fat. The findings are consistent with early acute appendicitis. PELVIS: Bladder: Unremarkable as visualized. Reproductive: Unremarkable as visualized. ABDOMEN and PELVIS: Intraperitoneal space: Unremarkable. No free air. No significant fluid collection. Bones/joints: No acute fracture. Soft tissues: Unremarkable. Vasculature: Unremarkable. No abdominal aortic aneurysm. Lymph nodes: Mild bilateral hilar lymphadenopathy is present. IMPRESSION: 1. Early acute appendicitis. 2. Bilateral lower lobe atelectasis/consolidation. Dictated and Authenticated by: Isauro Pro MD. Ordering:SHONDA Smith MD Ordered By: CC: Dictated By: Reports vrad 01/28/18 1556 01/28/18 1619 Transcribed By: Shirin Rosales This is privileged, confidential information intended only for the provider named. Any use or distribution by any person other than this provider is strictly prohibited. If you receive this report in error, please notify us immediately at [phone] and return the original report to us at the address above. Thank-you. Labs : 01/28/18 15:40 01/28/18 15:40 Laboratory Results - last 24 hr 01/28/18 01/28/18 01/28/18 15:31 15:40 15:40 WBC 10.64 RBC 5.10 Hgb 15.3 Hct 45.5 MCV 89.2 MCH 30.0 MCHC 33.6 RDW 13.7 Plt Count 172 MPV 12.9 H Immature Gran % 0.2 Neutrophils % 84.1 Lymphocytes % 10.4 Monocytes % 5.0 Eosinophils % 0.2 Basophils % 0.1 Absolute Neutrophils 8.95 H Absolute Lymphocytes 1.11 L Absolute Monocytes 0.53 Absolute Eosinophils 0.02 Absolute Basophils 0.01 Sodium 136 Potassium 4.0 Chloride 102 Carbon Dioxide 25.4 Anion Gap 8.6 BUN 14 Creatinine 1.00 Estimated GFR/1.73 m2 >= 60.00 Glucose 101 H Calcium 8.6 Total Bilirubin 0.5 AST 26 ALT 22 Alkaline Phosphatase 98 Total Protein 9.0 H Albumin 3.3 L Urine Color Yellow Urine Clarity Clear Urine pH 5.5 Ur Specific [place] 1.010 Urine Protein Negative Urine Ketones Negative Urine Blood Negative Urine Nitrite Negative Urine Bilirubin Negative Urine Urobilinogen 0.2 Ur Leukocyte Esterase Negative Urine Glucose Negative Last Vital Signs Temp 36.6 C 01/28/18 15:01 Pulse 91 H 01/28/18 15:01 Resp 18 01/28/18 15:01 BP 110/65 01/28/18 15:01 Pulse Ox 97 01/28/18 15:01
--- NOTE | 2018-01-28 18:03 | HPE_ITS ---
Date of service: 01/28/18 Time of Service: 17:59 Assessment and Plan (1) Acute appendicitis: Current visit: Yes Status: Acute Early acute appendicitis on CT discussed with patient via political consultant service. We discussed the rationale and procedure for a laparoscopic appendectomy. Operative procedure with risks, benefits, and alternatives including but not limited to risks with anesthesia, bleeding, infecction, scarring, conversion to open, injury to adjacent structures and organs, and possible additional procedures all discussed. All questions answered. We discussed postop care including no lifting > 20# x 2 weeks. We discussed anticipated discharge home tomorrow pending course. Patient verbalized via political consultant that he wished to proceed. History of Present Illness Chief Complaint: Abdominal pain Narrative: 32 y/o [place] male seen with his coworker in the ED. 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 He notes that he is to return to [place] in 5 days. Patient understands and is somewhat conversant in Belgian. Also utilized the language line political consultant service. Patient notes that he did have a sore throat and cough for about a week or so. He thinks that he may have had a little bit of blood in his phlegm. Last night he had subjective fevers, chills, nausea, vomiting, and diarrhea. He also developed pain localized to the right lower quadrant since this morning. CT abd/pelvis in the ED was reviewed. VRADS report read as an early acute appendicitis. No phlegmon or abscess seen. WBC WNL at ~ 10k. Review of Systems Constitutional Reports system reviewed and no additional complaints, except as docu, Reports chills and Reports fever(s) ENT Reports sore throat Respiratory Reports cough Gastrointestinal Reports abdominal pain, Denies hematochezia, Denies constipation, Reports diarrhea, Reports vomiting and Denies hematemesis [facility] Social History Smoking/Tobacco Use Status: Never alcohol intake: current alcohol intake frequency: a few times a month substance use type: does not use Meds Home Medications Medication Instructions Recorded Confirmed Type bisacodyl 5 mg PO ONCE #10 tabec 11/04/12 Rx ondansetron HCl 4 mg PO Q6H #10 tab 11/04/12 Rx Allergies Allergy/AdvReac Type Severity Reaction Status Date / Time No Known Allergies Allergy Unverified 11/04/12 15:00 Exam Const General: cooperative, no acute distress and well developed Nutritional Appearance: well nourished Orientation: alert Eyes Sclera: sclerae normal Neck Neck: trachea midline, supple and no JVD Resp Effort & Inspection: normal respiratory effort and able to speak in complete se ntences Cardio Jugular venous pressure: no JVD Rate: regular rate Rhythm: regular rhythm GI Inspection: non-distended Palpation: soft, not firm, no guarding, not rigid and tender in the RLQ (moderate tenderness localized to RLQ) Skin General skin exam: no rashes or lesions noted and no jaundice Neuro General: alert Speech: speech normal Results Imaging Chest x-ray: report reviewed and image reviewed Abdomen CT scan report/results: report reviewed and image reviewed CT scan - pelvis: report reviewed and image reviewed Imaging Studies: Patient Name: Ravi ELLER #: [id number]: ER Ordering Provider: : PRE ER Primary Care Provider: None,None Date of Exam: 01/28/18ex: M : 1985Age: 32 Exam(s) EXAM: XR Chest, 2 Views EXAM DATE/TIME: 01/28/2018 4:03 PM CLINICAL HISTORY: 32 years old, male; Signs and symptoms; Cough and shortness of breath; Additional info: Best images obtained, patient unable to follow breathing instructions after telling him to hold breath during exam. Repeated exam best images obtained. TECHNIQUE: XR of the chest, 2 views. COMPARISON: No relevant prior studies available. FINDINGS: Tubes, catheters and devices: Lungs: Mild hazy density in the posterior lower lobes bilaterally. Mildly prominent reticular markings and minimal fissure thickening. There is questionable minimal septal line thickening in the right lateral lower lung zone. The findings raise the suspicion for an underlying interstitial lung process (acute versus chronic). Pleural space: No pleural effusion or pneumothorax. Heart/Mediastinum: The cardiomediastinal silhouette and pulmonary vasculature are within normal limits. Bones/joints: Unremarkable. IMPRESSION: Findings suspicious for mild interstitial lung disease (acute versus chronic). I personally discussed the findings with Sarah Cloud on 01/28/2018 at 4:27 PM EST by telephone conference call. Dictated and Authenticated by: Isauro Pro MD. Ordering:SHONDA Smith MD Ordered By: CC: Dictated By: Brooks vrad 01/28/18 1603 01/28/18 1628 Transcribed By: Shirin Rosales This is privileged, confidential information intended only for the provider named. Any use or distribution by any person other than this provider is strictly prohibited. If you receive this report in error, please notify us immediately at [phone] and return the original report to us at the address above. Thank-you. Patient Name: Ravi ELLER #: [id number]: ER Ordering Provider: : PRE ER Primary Care Provider: None,None Date of Exam: 01/28/18ex: M : 1985Age: 32 Exam(s) EXAM: CT Abdomen and Pelvis With Contrast EXAM DATE/TIME: 01/28/2018 3:56 PM CLINICAL HISTORY: 32 years old, male; Pain; Abdominal pain; Localized; Right lower quadrant (rlq); Patient HX: Rlq abd pain, R/O appendicitis. ; Additional info: Best images obtained, patient unable to follow breathing instructions after telling him to hold breath during exam. Repeated exam best images obtained. TECHNIQUE: Axial computed tomography images of the abdomen and pelvis with intravenous contrast. All CT scans at this facility use at least one of these dose optimization techniques: automated exposure control; mA and/or kV adjustment per patient size (includes targeted exams where dose is matched to clinical indication); or iterative reconstruction. Coronal and sagittal reformatted images were created and reviewed. CONTRAST: 100 ml of omnipaque 350 administered intravenously. COMPARISON: No relevant prior studies available. FINDINGS: Lower thorax: Bilateral lower lobe opacities are present and consistent with dependent atelectasis and/or posterior consolidation. ABDOMEN: Liver: Unremarkable. No mass. Gallbladder and bile ducts: Unremarkable. No calcified stones. No ductal dilation. Pancreas: Unremarkable. No ductal dilation. Spleen: Unremarkable. No splenomegaly. Adrenals: Normal. No mass. Kidneys and ureters: Unremarkable. No stones. No hydronephrosis. Stomach and bowel: Unremarkable. No obstruction. No mucosal thickening. Appendix: The appendix is dilated and there is mild stranding and haziness in the periappendiceal fat. The findings are consistent with early acute appendicitis. PELVIS: Bladder: Unremarkable as visualized. Reproductive: Unremarkable as visualized. ABDOMEN and PELVIS: Intraperitoneal space: Unremarkable. No free air. No significant fluid collection. Bones/joints: No acute fracture. Soft tissues: Unremarkable. Vasculature: Unremarkable. No abdominal aortic aneurysm. Lymph nodes: Mild bilateral hilar lymphadenopathy is present. IMPRESSION: 1. Early acute appendicitis. 2. Bilateral lower lobe atelectasis/consolidation. Dictated and Authenticated by: Isauro Pro MD. Ordering:SHONDA Smith MD Ordered By: CC: Dictated By: Reports vrad 01/28/18 1556 01/28/18 1619 Transcribed By: Shirin Rosales This is privileged, confidential information intended only for the provider named. Any use or distribution by any person other than this provider is strictly prohibited. If you receive this report in error, please notify us immediately at [phone] and return the original report to us at the address above. Thank-you. Labs : 01/28/18 15:40 01/28/18 15:40 Laboratory Results - last 24 hr 01/28/18 01/28/18 01/28/18 15:31 15:40 15:40 WBC 10.64 RBC 5.10 Hgb 15.3 Hct 45.5 MCV 89.2 MCH 30.0 MCHC 33.6 RDW 13.7 Plt Count 172 MPV 12.9 H Immature Gran % 0.2 Neutrophils % 84.1 Lymphocytes % 10.4 Monocytes % 5.0 Eosinophils % 0.2 Basophils % 0.1 Absolute Neutrophils 8.95 H Absolute Lymphocytes 1.11 L Absolute Monocytes 0.53 Absolute Eosinophils 0.02 Absolute Basophils 0.01 Sodium 136 Potassium 4.0 Chloride 102 Carbon Dioxide 25.4 Anion Gap 8.6 BUN 14 Creatinine 1.00 Estimated GFR/1.73 m2 >= 60.00 Glucose 101 H Calcium 8.6 Total Bilirubin 0.5 AST 26 ALT 22 Alkaline Phosphatase 98 Total Protein 9.0 H Albumin 3.3 L Urine Color Yellow Urine Clarity Clear Urine pH 5.5 Ur Specific [place] 1.010 Urine Protein Negative Urine Ketones Negative Urine Blood Negative Urine Nitrite Negative Urine Bilirubin Negative Urine Urobilinogen 0.2 Ur Leukocyte Esterase Negative Urine Glucose Negative Last Vital Signs Temp 36.6 C 01/28/18 15:01 Pulse 91 H 01/28/18 15:01 Resp 18 01/28/18 15:01 BP 110/65 01/28/18 15:01 Pulse Ox 97 01/28/18 15:01
[2018-01-28] MEDS: Lactated Ringers 1,000 ML 80 ML IV ×2 (18:20→19:01)
[2018-01-28 18:29] LABS: D-Dimer 319 ng/mlFEU (<500)
--- NOTE | 2018-01-28 19:00 | APP_PTH ---
PATIENT: AUDREY ELLER LOC: U#:[id number] AGE/SX: 32/M ROOM: 214 RE01/30/[address]: Shayan Gutierres : 1985 BED: A DIS: 01/31/2018 SPEC #: [id number] RECD: 01/31/18 12:26 STATUS: JAMLE REQ #: [id number] AGUSTÍN: 01/28/18 19:[address]: Shayan Gutierres DEPT: Surgical Specimen RECD BY: Courtney Barnes ENTERED: 01/31/18 12:27 SP TYPE: Appendix OTHR DR: Chelsie Gonzalez APRN Tissues: 1 - APPENDIX NOT INCIDENTAL Procedures: GROSS AND MICRO LEVEL 3 Comments: [id number]
[2018-01-28] MEDS: Bupivacaine 0.25% Pres-Free 30 ML VIAL (19:11)
--- NOTE | 2018-01-28 19:32 | W.PM.OP ---
Date of service: 01/28/18 Time of Service: 19:32 Operative Note DATE OF PROCEDURE: 01/28/18 PRE-OP DIAGNOSIS: Acute appendicitis POST-OP DIAGNOSIS: same PROCEDURE: Laparoscopic appendectomy SURGEON: Shayan Gutierres FOOD SERVICE TECHNICIAN: Berenice Tilley ANESTHESIA: GETA ESTIMATED BLOOD LOSS: 5 PATHOLOGY: other (Appendix) COMPLICATIONS: None Patient was transported to: PACU Patient's condition: stable Indications: 32 y/o male admitted through the ED with findings of acute appendicitis. Patient presents at this time for a laparoscopic appendectomy. Operative procedure including risks, benefits, and alternatives discussed with patient and informed consent obtained prior to surgery. Findings: Suppurative acute appendicitis without organized abscess or gross rupture; small amount of cloudy fluid adjacent to appendix Procedure Description: Patient was brought to the operating room and placed on the table in the supine position. Patient was intubated and placed under general anesthesia. Patient received Rocephin and Flagyl in the ED for perioperative antibiotic coverage. Macario catheter was placed. Left arm carefully tucked at the side. Anterior abdominal wall was shaved with a clipper then prepped and draped in the usual sterile fashion with Chloraprep. Time out performed per protocol. Initial incision made just below the umbilicus. A transverse incision ~ 2 cm in length was made. This was carried down to the fascia which was grasped, elevated, and sharply incised. Peritoneal cavity was then bluntly entered in the midline. Peritoneal surface was swept with a finger. No adhesions noted. Stay sutures of 0-vicryl were placed on either side of the fascia. Tessie port inserted and abdomen insufflated with CO2 to a pressure of 15 mm Hg. Remaining ports placed under direct vision after injection with 0.25% Marcaine including a 5 mm port in the suprapubic region and a second 5 mm port in the LLQ. There was good visualization in the pelvis. Minimal cloudy fluid noted adjacent to the appendix which was thickened and acutely inflamed consistent with an acute appendicitis. No obvious rupture or organized abscess seen. The base of the appendix was isolated and divided with the endoGIA stapler. A vascular reload was utilized to divide the mesoappendix as well. The appendix was removed from the abdomen via the infraumbilical site with the endocatch bag. Right lower quadrant was irrigated with saline and suctioned until the effluent was clear. All staple lines intact with good hemostasis on final inspection. No signs of injury to adjacent cecum or terminal ileum on inspection. The abdomen was decompressed as the ports were withdrawn under direct vision. Fascia at the infraumbilical site was closed by tying together the stay sutures in a pursestring fashion. Additional 0.25% Marcaine injected at this site for postop analgesia. Skin incisions closed with subcuticular 4-0 monocryl and skin adhesive. Macario catheter removed at the end of the procedure. Patient tolerated surgery well, was extubated, awakened from anesthesia, and transferred to recovery in satisfactory condition.
[2018-01-28] MEDS: Albuterol/Ipratropium 3 ML UPD VIAL (19:50)
[2018-01-28] MEDS: Normal Saline Flush 10 ML SYR IVP ×2 (20:50→21:01)
--- NOTE | 2018-01-28 22:18 | NUR.NOTE ---
Nursing Note: At 20:30 hrs. Pt received from PACU staff via stretcher, post op lap appy, fully awake. Upper Sorbian speaking, able to understand little basic Luxembourgish. 3 small incision sites on abdomen glued and exposed to air. Umbilical site with scanty serous discharge. Post op vital signs taken and recorded and stable. Instructed to use inspirometer , has poor insight, unable to exhale by mouth. O2 Sat closely monitored , Presently on 4L O2 via NC. Pt.when asleep will desat. Has mild post op pain. BS is hypo active on right lower quad.Oriented to call lights system.
[2018-01-29] VITALS (7 sets, daily range): BP systolic 110–125; BP diastolic 71–80; PULSE 68–90; RESP 8–22; TEMP 36.2–37.3; O2SAT 83–100
[2018-01-29] MEDS: Albuterol 2.5 MG/3 ML INH SOLN VIAL UPD ×2 (08:54→17:04)
--- NOTE | 2018-01-29 12:02 | W.PM.PROGNOT ---
Date of Service Date of service: 01/29/18 Time of Service: 12:08 Assessment and Plan (1) Acute appendicitis: Current visit: Yes Status: Acute POD # 1 s/p lap appy. Advance to normal diet. May have food brought in from home. Advised patient not to lift > 20 # x 2 weeks. (2) Hypoxia: Current visit: Yes Status: Acute Transient with ambulation. Briefly discussed with Dr. Wheeler. Improving. Discussed with respiratory therapy. Continue albuterol tx prn and wean off O2 as tolerated. Encouraged IS use. Will treat empirically as a possible community acquired pneumonia. Patient has had URI symptoms for aboujt a week prior to presentation with acute appendicitis. Will continue Ceftriaxone and add Azithromycin. Plan d/c on po Azithromycin 01/30/18 if continues to improve. Subjective Interval history since last seen: Patient noted to be short of breath upon getting up to the bathroom this am. Much improved after albuterol treatment. Using incentive spirometer. Maintaining O2 sats in 90s on room air at rest but drops to mid 80's with ambulation on room air. CXR with ? interstitial disease and CT abd/pelvis with ? atelectasis vs. posterior consolidation noted. Patient notes a little abdominal discomfort - different from preop pain. He denies nausea or vomiting. Patient seen with his employer at the bedside. Exam Const General: cooperative, comfortable and no acute distress Orientation: alert Eyes Sclera: sclerae normal Resp Effort & Inspection: normal respiratory effort and able to speak in complete sentences Auscultation: clear to auscultation bilaterally Cardio Jugular venous pressure: no JVD Rate: regular rate GI Inspection: non-distended Palpation: soft, not firm, no guarding and nontender Auscultation: normal bowel sounds Skin General skin exam: no rashes or lesions noted and no jaundice Objective Objective Clinical Data: Abnormal lab results 01/28/18 01/28/18 Range/Units 15:40 15:40 MPV 12.9 H (8.0-11.0) fL Absolute Neutrophils 8.95 H (1.2-6.7) k/cumm Absolute Lymphocytes 1.11 L (1.2-3.4) k/cumm Glucose 101 H (70-100) mg/dL Total Protein 9.0 H (6.4-8.2) g/dL Albumin 3.3 L (3.4-5.0) g/dL Vital Signs Temperature 36.5 C 01/29/18 03:11 Temperature Source Tympanic 01/29/18 03:11 Pulse 87 01/29/18 08:54 Respiratory Rate 14 01/29/18 08:54 Respiratory Effort Non-Labored 01/28/18 21:03 Respiratory Depth Normal 01/28/18 21:03 Respiratory Pattern Normal 01/28/18 21:03 Blood Pressure 117/72 01/29/18 03:11 Blood Pressure Position Sitting 01/28/18 15:01 Pulse Oximetry 95 01/29/18 08:54 Respiratory End-tidal CO2 31 01/28/18 20:18 Oxygen Delivery Method Nasal Cannula 01/29/18 03:11 Oxygen Flow Rate 4 01/29/18 03:11 Pain Level 3 01/28/18 21:03 Intake & Output 01/28/18 01/29/18 01/29/18 23:59 11:59 23:59 Intake Total 1825 / 1825 120 / 120 Output Total 550 / 550 200 / 200 Balance 1275 / 1275 -80 / -80 Weight 80.2 kg Intake: IV 1825 / 1825 Oral 120 / 120 Output: Urine 550 / 550 200 / 200 Other: Urine Color Yellow Yellow Urine Appearance Clear Clear Emesis Description None Voiding Methods Urinal Laboratory Results WBC 10.64 k/cumm (4.4-10.8) 01/28/18 15:40 RBC 5.10 m/cumm (4.50-6.00) 01/28/18 15:40 Hgb 15.3 g/dL (13.5-17.5) 01/28/18 15:40 Hct 45.5 % (40.0-50.0) 01/28/18 15:40 MCV 89.2 fL (80-95) 01/28/18 15:40 MCH 30.0 pg (27.0-33.0) 01/28/18 15:40 MCHC 33.6 g/dL (32.0-36.0) 01/28/18 15:40 RDW 13.7 % (11.8-14.1) 01/28/18 15:40 Plt Count 172 x1000/uL (130-400) 01/28/18 15:40 MPV 12.9 fL (8.0-11.0) H 01/28/18 15:40 Immature Gran % 0.2 01/28/18 15:40 Neutrophils % 84.1 01/28/18 15:40 Lymphocytes % 10.4 01/28/18 15:40 Monocytes % 5.0 01/28/18 15:40 Eosinophils % 0.2 01/28/18 15:40 Basophils % 0.1 01/28/18 15:40 Absolute Neutrophils 8.95 k/cumm (1.2-6.7) H 01/28/18 15:40 Absolute Lymphocytes 1.11 k/cumm (1.2-3.4) L 01/28/18 15:40 Absolute Monocytes 0.53 k/cumm (0.11-0.7) 01/28/18 15:40 Absolute Eosinophils 0.02 k/cumm (0.0-0.7) 01/28/18 15:40 Absolute Basophils 0.01 k/cumm (0.0-0.2) 01/28/18 15:40 D-Dimer 319 ng/mlFEU (<500) 01/28/18 15:40 Sodium 136 mmol/L (136-145) 01/28/18 15:40 Potassium 4.0 mmol/L (3.5-5.1) 01/28/18 15:40 Chloride 102 mmol/L (98-107) 01/28/18 15:40 Carbon Dioxide 25.4 mmol/L (21.0-32.0) 01/28/18 15:40 Anion Gap 8.6 mmol/L (3-11) 01/28/18 15:40 BUN 14 mg/dL (7-18) 01/28/18 15:40 Creatinine 1.00 mg/dL (0.70-1.30) 01/28/18 15:40 Estimated GFR/1.73 m2 >= 60.00 (mL/min/1.73m2) 01/28/18 15:40 Glucose 101 mg/dL (70-100) H 01/28/18 15:40 Calcium 8.6 mg/dL (8.5-10.1) 01/28/18 15:40 Total Bilirubin 0.5 mg/dL (0.2-1.0) 01/28/18 15:40 AST 26 U/L (15-37) 01/28/18 15:40 ALT 22 U/L (12-78) 01/28/18 15:40 Alkaline Phosphatase 98 U/L (46-116) 01/28/18 15:40 Total Protein 9.0 g/dL (6.4-8.2) H 01/28/18 15:40 Albumin 3.3 g/dL (3.4-5.0) L 01/28/18 15:40 Urine Color Yellow (Yellow) 01/28/18 15:31 Urine Clarity Clear 01/28/18 15:31 Urine pH 5.5 (5-8) 01/28/18 15:31 Ur Specific [place] 1.010 (1.005-1.025) 01/28/18 15:31 Urine Protein Negative mg/dL (Negative) 01/28/18 15:31 Urine Ketones Negative mg/dL (Negative) 01/28/18 15:31 Urine Blood Negative (Negative) 01/28/18 15:31 Urine Nitrite Negative (Negative) 01/28/18 15:31 Urine Bilirubin Negative (Negative) 01/28/18 15:31 Urine Urobilinogen 0.2 EU/dL (Up TO 0.2) 01/28/18 15:31 Ur Leukocyte Esterase Negative (Negative) 01/28/18 15:31 Urine Glucose Negative mg/dL (Negative) 01/28/18 15:31
[2018-01-29] MEDS: Lactated Ringers 1,000 ML 80 ML IV (12:54)
[2018-01-29] MEDS: AZITHROMYCIN 500 MG in Normal Saline 250 ML 250 MG IVPB (12:54)
--- NOTE | 2018-01-29 14:08 | PHARADMIT ---
Addendum entered by Beverly Walter 01/30/18 12:51: Pharmacy Note Subjective Objective BP-148/88 other VS okay no labs Assessment azithromycin (day2) and ceftriaxone (day3) continue Plan watch for change to PO abx possible discharge tomorrow if continues to improve per progress note Original Note: Admission Pharmacy Clinical Review acute appendicitis, lung consolidation Code Status Full Code Current Weight 80.2 kg Renally Cleared and Narrow Therapeutic Index Meds Crcl ~99.00 mL/min current meds okay QTc Value / Action Taken n/a BP Control, Fever BP 125/80 afebrile Electrolytes reviewed within normal limits DVT Prophylaxis none Opiate Usage / Scheduled Bowel Regimen Ordered prn/no Plt/SCr for Heparin / Enoxaparin plt 172 SCr 1.00 INR for Warfarin n/a H/H stable, WBC/Bands h/h 15.3/45.5 wbc 10.64 Antibiotic appropriateness ceftriaxone and azithromycin (for URI symptoms) Cultures and Sensitivities throat culture grew normal al[facility] Surgical ABX d/c within 24 hr n/a DM control / Insulin Dosing BG 101 n/a Heart Failure (Check EF%) (FAIZAN's, B-Block, Diuretics) none IV to PO Switch n/a Home Meds Reviewed yes Home Meds Not Ordered bisacodyl Comments
--- NOTE | 2018-01-29 16:25 | PDOC.CMIN ---
Care Management Initial Assess REASON FOR HOSPITALIZATION:: Acute Appendicitis PAST MEDICAL HISTORY/PAST SURGICAL HISTORY:: Not provided PREVIOUS FUNCTIONAL STATUS/SOCIAL/FAMILY SUPPORTS:: Independent. 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 He will be returning to [place] in 5 days. CURRENT FUNCTIONAL STATUS:: Lying in bed. Alert and able to ambulate independently. ADVANCE DIRECTIVES:: None on file Has patient been provided with information about the portal?: No Did the patient sign up for the portal?: No CODE STATUS:: Full Code INSURANCE COVERAGE / FINANCIAL ISSUES:: Self Pay CURRENT HOME/COMMUNITY SERVICES/EQUIPMENT:: None PRIMARY CARE PHYSICIAN:: No local PCP POTENTIAL DISCHARGE NEEDS:: None at this time PATIENT/FAMILY EDUCATION NEEDS:: Importance of following the D/C instructions - No lifting of more than 20 pounds. ANTICIPATED BARRIERS TO DISCHARGE:: None TRANSPORTATION:: [employer] co-workers will transport PLAN:: Return to the [employer] when medically cleared for discharge and then on to his home in [place].
--- NOTE | 2018-01-29 16:33 | INITIAL_ITS ---
Care Management Initial Assess REASON FOR HOSPITALIZATION:: Acute Appendicitis PAST MEDICAL HISTORY/PAST SURGICAL HISTORY:: Not provided PREVIOUS FUNCTIONAL STATUS/SOCIAL/FAMILY SUPPORTS:: Independent. 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 CURRENT FUNCTIONAL STATUS:: Lying in bed. Alert and able to ambulate independently. ADVANCE DIRECTIVES:: None on file Has patient been provided with information about the portal?: No Did the patient sign up for the portal?: No CODE STATUS:: Full Code INSURANCE COVERAGE / FINANCIAL ISSUES:: Self Pay CURRENT HOME/COMMUNITY SERVICES/EQUIPMENT:: None PRIMARY CARE PHYSICIAN:: No local PCP POTENTIAL DISCHARGE NEEDS:: None at this time PATIENT/FAMILY EDUCATION NEEDS:: Importance of following the D/C instructions - No lifting of more than 20 pounds. ANTICIPATED BARRIERS TO DISCHARGE:: None TRANSPORTATION:: [facility] co-workers will transport PLAN:: Return to the [facility] when medically cleared for discharge and then on to his home in [place].
--- NOTE | 2018-01-29 17:04 | RESPIRATORY ---
01/29/18-Walking with Pt in hallway. Pt complains of his upper airways hurting when he takes a deep breath. On RA Spo2 86%. 1 LPM NC placed on during walk SPO2 93%.
[2018-01-29] MEDS: Acetaminophen 325 MG TAB 650 MG PO (20:37)
[2018-01-30] VITALS (9 sets, daily range): BP systolic 112–148; BP diastolic 75–88; PULSE 71–100; RESP 8–20; TEMP 36.7–37.5; O2SAT 83–96
[2018-01-30] MEDS: Lactated Ringers 1,000 ML 80 ML IV ×2 (00:04→12:58)
[2018-01-30] MEDS: Albuterol 2.5 MG/3 ML INH SOLN VIAL UPD (09:00)
--- NOTE | 2018-01-30 12:33 | W.PM.PROGNOT ---
Date of Service Date of service: 01/30/18 Time of Service: 12:33 Assessment and Plan (1) Acute appendicitis: Current visit: Yes Status: Acute POD # 2 s/p lap appy. Regular diet. May have food brought in from home. Qualifiers: Acute appendicitis type: with localized peritonitis Appendicitis gangrene presence: without gangrene Appendicitis perforation presence: without perforation Appendicitis abscess presence: without abscess Qualified Code(s): K35.30 - Acute appendicitis with localized peritonitis, without perforation or gangrene (2) Hypoxia: Current visit: Yes Status: Acute Transient with ambulation. Discussed with respiratory therapy. Continue albuterol tx prn and wean off O2 as tolerated. Schedule duoneb treatments for today. Encouraged IS use. Will continue to treat empirically as a possible community acquired pneumonia with Ceftriaxone and Azithromycin. Patient has had URI symptoms for about a week prior to presentation with acute appendicitis. Throat cultures show normal alise. Plan d/c with Rx for po Azithromycin x 3 days to complete 5 day course on 01/31/18 if continues to improve. Subjective Patient reports: no new complaints Interval history since last seen: Patient placed on O2 overnight for low sats at rest. He is using his incentive spirometer well per staff. Ambulated with respiratory therapy this am and O2 sats dropped to 83% on room air. Received a duoneb treatment. Denies abdominal complaints. Tolerating a regular diet without nausea or vomiting. Voiding. (+) flatus. Exam Const General: cooperative, comfortable, no acute distress and well developed Nutritional Appearance: well nourished Eyes Sclera: sclerae normal Resp Effort & Inspection: normal respiratory effort and able to speak in complete sentences GI Inspection: non-distended and incision (surgical sites - dry/clean/skin intact) Palpation: soft, not firm, no guarding, no masses and nontender Skin General skin exam: no rashes or lesions noted and no jaundice Objective Objective Clinical Data: Vital Signs Temperature 36.8 C 01/30/18 08:24 Temperature Source Tympanic 01/30/18 08:24 Pulse 72 01/30/18 08:24 Pulse Rhythm Regular 01/29/18 23:10 Respiratory Rate 20 01/30/18 08:24 Respiratory Effort Non-Labored 01/29/18 23:10 Respiratory Depth Normal 01/29/18 23:10 Respiratory Pattern Normal 01/29/18 23:10 Blood Pressure 148/88 H 01/30/18 08:24 Blood Pressure Position Sitting 01/28/18 15:01 Pulse Oximetry 94 L 01/30/18 08:24 Respiratory End-tidal CO2 31 01/28/18 20:18 Oxygen Delivery Method Nasal Cannula 01/30/18 08:24 Oxygen Flow Rate 4 01/30/18 08:24 Pain Level 0 01/30/18 08:24 Comment 01/30/18 06:12 Intake & Output 01/29/18 01/30/18 01/30/18 23:59 11:59 23:59 Intake Total 796.000 / 916.000 144 / 144 Output Total 300 / 300 Balance 796.000 / 716.000 -156 / -156 Intake: IV 556.000 / 556.000 44 / 44 Oral 240 / 360 100 / 100 Output: Urine 300 / 300 Other: Urine Color Yellow Urine Appearance Clear Comment uop toilet x 1 Voiding Methods Diaper Urinal Laboratory Results WBC 10.64 k/cumm (4.4-10.8) 01/28/18 15:40 RBC 5.10 m/cumm (4.50-6.00) 01/28/18 15:40 Hgb 15.3 g/dL (13.5-17.5) 01/28/18 15:40 Hct 45.5 % (40.0-50.0) 01/28/18 15:40 MCV 89.2 fL (80-95) 01/28/18 15:40 MCH 30.0 pg (27.0-33.0) 01/28/18 15:40 MCHC 33.6 g/dL (32.0-36.0) 01/28/18 15:40 RDW 13.7 % (11.8-14.1) 01/28/18 15:40 Plt Count 172 x1000/uL (130-400) 01/28/18 15:40 MPV 12.9 fL (8.0-11.0) H 01/28/18 15:40 Immature Gran % 0.2 01/28/18 15:40 Neutrophils % 84.1 01/28/18 15:40 Lymphocytes % 10.4 01/28/18 15:40 Monocytes % 5.0 01/28/18 15:40 Eosinophils % 0.2 01/28/18 15:40 Basophils % 0.1 01/28/18 15:40 Absolute Neutrophils 8.95 k/cumm (1.2-6.7) H 01/28/18 15:40 Absolute Lymphocytes 1.11 k/cumm (1.2-3.4) L 01/28/18 15:40 Absolute Monocytes 0.53 k/cumm (0.11-0.7) 01/28/18 15:40 Absolute Eosinophils 0.02 k/cumm (0.0-0.7) 01/28/18 15:40 Absolute Basophils 0.01 k/cumm (0.0-0.2) 01/28/18 15:40 D-Dimer 319 ng/mlFEU (<500) 01/28/18 15:40 Sodium 136 mmol/L (136-145) 01/28/18 15:40 Potassium 4.0 mmol/L (3.5-5.1) 01/28/18 15:40 Chloride 102 mmol/L (98-107) 01/28/18 15:40 Carbon Dioxide 25.4 mmol/L (21.0-32.0) 01/28/18 15:40 Anion Gap 8.6 mmol/L (3-11) 01/28/18 15:40 BUN 14 mg/dL (7-18) 01/28/18 15:40 Creatinine 1.00 mg/dL (0.70-1.30) 01/28/18 15:40 Estimated GFR/1.73 m2 >= 60.00 (mL/min/1.73m2) 01/28/18 15:40 Glucose 101 mg/dL (70-100) H 01/28/18 15:40 Calcium 8.6 mg/dL (8.5-10.1) 01/28/18 15:40 Total Bilirubin 0.5 mg/dL (0.2-1.0) 01/28/18 15:40 AST 26 U/L (15-37) 01/28/18 15:40 ALT 22 U/L (12-78) 01/28/18 15:40 Alkaline Phosphatase 98 U/L (46-116) 01/28/18 15:40 Total Protein 9.0 g/dL (6.4-8.2) H 01/28/18 15:40 Albumin 3.3 g/dL (3.4-5.0) L 01/28/18 15:40 Urine Color Yellow (Yellow) 01/28/18 15:31 Urine Clarity Clear 01/28/18 15:31 Urine pH 5.5 (5-8) 01/28/18 15:31 Ur Specific [place] 1.010 (1.005-1.025) 01/28/18 15:31 Urine Protein Negative mg/dL (Negative) 01/28/18 15:31 Urine Ketones Negative mg/dL (Negative) 01/28/18 15:31 Urine Blood Negative (Negative) 01/28/18 15:31 Urine Nitrite Negative (Negative) 01/28/18 15:31 Urine Bilirubin Negative (Negative) 01/28/18 15:31 Urine Urobilinogen 0.2 EU/dL (Up TO 0.2) 01/28/18 15:31 Ur Leukocyte Esterase Negative (Negative) 01/28/18 15:31 Urine Glucose Negative mg/dL (Negative) 01/28/18 15:31
[2018-01-30] MEDS: AZITHROMYCIN 500 MG in Normal Saline 250 ML 250 MG IVPB (12:58)
[2018-01-30] MEDS: Albuterol/Ipratropium 3 ML UPD VIAL UPD (14:27)
--- NOTE | 2018-01-30 17:26 | PDOC.CMPRO ---
Care Management Progress Note S/O: Ambulating independently. 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
--- NOTE | 2018-01-30 17:30 | CMPROGNOTE_ITS ---
Care Management Progress Note S/O: Ambulating independently. 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
[2018-01-31] VITALS (7 sets, daily range): BP systolic 123–147; BP diastolic 77–89; PULSE 63–82; RESP 8–18; TEMP 36.3–37.2; O2SAT 96–99
--- NOTE | 2018-01-31 00:51 | NUR.NOTE ---
Nursing Note: 7P to 7A shift: Pt received fully awake, ambulates from bed to bathroom independently. IVFluids infusing well regulated to KVO the continuous POx monitor hooked up. Between 2100 to 21:30 hrs. monitor keeps on alarming with HR recorded as below 55 and O2 Sat was 91-92% at room air. Pt is asymptomatic, no verbalized complained. I/S well performed. converter operator notified and monitor timing on heart rate changed to 50. Will continue to observe. Call lights at reach.
--- NOTE | 2018-01-31 07:19 | PGE_ITS ---
Date of Service Date of service: 01/31/18 Time of Service: 07:03 Assessment and Plan (1) Acute appendicitis: Current visit: Yes Status: Acute A\\ Doing well from surgical standpoint P\\ Home today Qualifiers: Acute appendicitis type: with localized peritonitis Appendicitis gangrene presence: without gangrene Appendicitis perforation presence: without perforation Appendicitis abscess presence: without abscess Qualified Code(s): K35.30 - Acute appendicitis with localized peritonitis, without perforation or gangrene (2) Community acquired pneumonia: Current visit: Yes Status: Acute A\\ Breathing better. Off O2 this am. Sating 96% P\\ Home on Azithromycin for 3 more days Qualifiers: Lung location: upper lobe of lung Laterality: right Qualified Code(s): J18.1 - Lobar pneumonia, unspecified organism Subjective Interval history since last seen: No new Complaints. Feeling well. Eating without N/V. Had BM. Breathing better. Exam Resp Effort & Inspection: normal respiratory effort Auscultation: clear to auscultation bilaterally Cardio Rate: regular rate Rhythm: regular rhythm Heart Sounds: no click, no gallops, no murmurs and no rubs GI Inspection: normal to inspection and incision (c/d/i) Palpation: soft, no hepatosplenomegaly and tender (mild around incisions, no guarding or rebound) Auscultation: normal bowel sounds Objective Objective Clinical Data: Vital Signs Temperature 97.3 F L 01/31/18 04:12 Temperature Source Tympanic 01/31/18 04:12 Pulse 73 01/31/18 04:12 Pulse Rhythm Regular 01/30/18 22:13 Respiratory Rate 16 01/31/18 04:12 Respiratory Effort Non-Labored 01/30/18 22:13 Respiratory Depth Normal 01/30/18 22:13 Respiratory Pattern Normal 01/30/18 22:13 Blood Pressure 126/80 01/31/18 04:12 Blood Pressure Position Sitting 01/28/18 15:01 Pulse Oximetry 97 01/31/18 04:12 Respiratory End-tidal CO2 31 01/28/18 20:18 Oxygen Delivery Method Room Air 01/31/18 04:12 Oxygen Flow Rate 0 01/31/18 04:12 Pain Level 0 01/30/18 16:25 Comment 01/30/18 06:12 Intake & Output 01/30/18 01/30/18 01/31/18 11:59 23:59 11:59 Intake Total 144 / 1804 1660 / 1804 Output Total 600 / 600 400 / 400 Balance -456 / 1204 1660 / 1204 -400 / -400 Intake: IV 44 / 1344 1300 / 1344 Oral 100 / 460 360 / 460 Output: Urine 600 / 600 400 / 400 Other: Urine Color Yellow Yellow Urine Appearance Clear Clear Clear Urine Odor Normal Comment urinal + void x 1 in toilet Void x 1 in toilet Voiding Methods Toilet Toilet Urinal Urinal Laboratory Results WBC 10.64 k/cumm (4.4-10.8) 01/28/18 15:40 RBC 5.10 m/cumm (4.50-6.00) 01/28/18 15:40 Hgb 15.3 g/dL (13.5-17.5) 01/28/18 15:40 Hct 45.5 % (40.0-50.0) 01/28/18 15:40 MCV 89.2 fL (80-95) 01/28/18 15:40 MCH 30.0 pg (27.0-33.0) 01/28/18 15:40 MCHC 33.6 g/dL (32.0-36.0) 01/28/18 15:40 RDW 13.7 % (11.8-14.1) 01/28/18 15:40 Plt Count 172 x1000/uL (130-400) 01/28/18 15:40 MPV 12.9 fL (8.0-11.0) H 01/28/18 15:40 Immature Gran % 0.2 01/28/18 15:40 Neutrophils % 84.1 01/28/18 15:40 Lymphocytes % 10.4 01/28/18 15:40 Monocytes % 5.0 01/28/18 15:40 Eosinophils % 0.2 01/28/18 15:40 Basophils % 0.1 01/28/18 15:40 Absolute Neutrophils 8.95 k/cumm (1.2-6.7) H 01/28/18 15:40 Absolute Lymphocytes 1.11 k/cumm (1.2-3.4) L 01/28/18 15:40 Absolute Monocytes 0.53 k/cumm (0.11-0.7) 01/28/18 15:40 Absolute Eosinophils 0.02 k/cumm (0.0-0.7) 01/28/18 15:40 Absolute Basophils 0.01 k/cumm (0.0-0.2) 01/28/18 15:40 D-Dimer 319 ng/mlFEU (<500) 01/28/18 15:40 Sodium 136 mmol/L (136-145) 01/28/18 15:40 Potassium 4.0 mmol/L (3.5-5.1) 01/28/18 15:40 Chloride 102 mmol/L (98-107) 01/28/18 15:40 Carbon Dioxide 25.4 mmol/L (21.0-32.0) 01/28/18 15:40 Anion Gap 8.6 mmol/L (3-11) 01/28/18 15:40 BUN 14 mg/dL (7-18) 01/28/18 15:40 Creatinine 1.00 mg/dL (0.70-1.30) 01/28/18 15:40 Estimated GFR/1.73 m2 >= 60.00 (mL/min/1.73m2) 01/28/18 15:40 Glucose 101 mg/dL (70-100) H 01/28/18 15:40 Calcium 8.6 mg/dL (8.5-10.1) 01/28/18 15:40 Total Bilirubin 0.5 mg/dL (0.2-1.0) 01/28/18 15:40 AST 26 U/L (15-37) 01/28/18 15:40 ALT 22 U/L (12-78) 01/28/18 15:40 Alkaline Phosphatase 98 U/L (46-116) 01/28/18 15:40 Total Protein 9.0 g/dL (6.4-8.2) H 01/28/18 15:40 Albumin 3.3 g/dL (3.4-5.0) L 01/28/18 15:40 Urine Color Yellow (Yellow) 01/28/18 15:31 Urine Clarity Clear 01/28/18 15:31 Urine pH 5.5 (5-8) 01/28/18 15:31 Ur Specific [place] 1.010 (1.005-1.025) 12/14/18 15:31 Urine Protein Negative mg/dL (Negative) 01/28/18 15:31 Urine Ketones Negative mg/dL (Negative) 01/28/18 15:31 Urine Blood Negative (Negative) 01/28/18 15:31 Urine Nitrite Negative (Negative) 01/28/18 15:31 Urine Bilirubin Negative (Negative) 01/28/18 15:31 Urine Urobilinogen 0.2 EU/dL (Up TO 0.2) 01/28/18 15:31 Ur Leukocyte Esterase Negative (Negative) 01/28/18 15:31 Urine Glucose Negative mg/dL (Negative) 01/28/18 15:31
--- NOTE | 2018-01-31 09:52 | PDOC.CMPRO ---
- If Service Date Differs Date of service: 01/31/18 Time of Service: 09:52 Care Management Progress Note S/O: Nate is sitting in his chair when CM visits this morning. He makes good eye contact and is open to conversation. Nate reports that he speaks a little Cuban, and CM speaks a little Polish. Conversation is limited, but Nate reports that he is not having any pain and is feeling well. Plan is unchanged at this time; patient will discharge home when medically ready per MD. Reportedly Nate will return to the [facility] where he works and resides prior to returning to [place] later in the week. CM met with Mercedes Gonzalez; [facility] [employer] [place] [employer] Medical Underwriter and Health Promoter who is assisting Nate with financials considerations at [facility]. Nate is self-pay and is working with Anil regarding a sliding scale payment for hospitalization. 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 Anticipate patient will discharge with no services and follow up with his PCP. Nate will transport via private vehicle with a co-worker. CM will continue to offer support to patient and care team regarding discharge planning and disposition.
--- NOTE | 2018-01-31 09:59 | CMPROGNOTE_ITS ---
- If Service Date Differs Date of service: 01/31/18 Time of Service: 09:52 Care Management Progress Note S/O: Nate is sitting in his chair when CM visits this morning. He makes good eye contact and is open to conversation. Nate reports that he speaks a little South African, and CM speaks a little Luxembourgish. Conversation is limited, but Nate reports that he is not having any pain and is feeling well. Plan is unchanged at this time; patient will discharge home when medically ready per MD. Reportedly Nate will return to the [facility] where he works and resides prior to returning to [place] later in the week. CM met with Mercedes Gonzalez; [facility] [place] [employer] [place] [employer] Prosthetics Technician and Health Promoter who is assisting Nate with financials considerations at [facility]. Nate is self-pay and is working with Anil regarding a sliding scale payment for hospitalization. 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 Anticipate patient will discharge with no services and follow up with his PCP. Nate will transport via private vehicle with a co-worker. CM will continue to offer support to patient and care team regarding discharge planning and disposition.
[2018-01-31] MEDS: Albuterol/Ipratropium 3 ML UPD VIAL UPD (11:57)
[2018-01-31] MEDS: Normal Saline Flush 10 ML SYR IVP ×2 (12:21→15:16)
[2018-01-31] MEDS: AZITHROMYCIN 500 MG in Normal Saline 250 ML 250 MG IVPB (12:21)
--- NOTE | 2018-01-31 15:19 | CHAPLAIN ---
I had a very brief visit with Nate. Explained my role and offered support.
--- NOTE | 2018-01-31 15:34 | DSE_ITS ---
Date of service: 01/31/18 Time of Service: 15:32 DS: Diagnosis Discharge Diagnosis (1) Acute appendicitis: Status: Acute (2) Community acquired pneumonia: Status: Acute Discharge Plan Disposition Patient Disposition: HOME Condition: Stable Discharge Details Reason For Visit: ACUTE APPENDICITIS, LUNG CONSOLIDATION Admit Date/Time: 01/30/18 22:30 Admit Provider: Shayan Gutierres Attending Provider: Shayan Gutierres Primary Care Provider: Chelsie Gonzalez Hospital Course Hospital Course: Mr. Guillen was admitted to the hospital on 01/28/18 with acute appendicitis. He underwent a Laparoscopic appendectomy. He did well overnight. His diet was advanced to a regular diet by Wednesday. He did have some hypoxia with ambulation and CXR done in the ER showed some consolidation. He was started on azithromycin for community acquiered pneumonia as he had had URI symptoms for about 1 week prior to coming to the ER. On Wednesday his hypoxia had resolved. He was using only tylenol and ibuprofen for pain and was tolerating a regular diet. Patient is discharged home to follow up in 2 weeks in the office. Home Meds and New Rx's Prescriptions: New acetaminophen [Tylenol] 325 mg Tablet 650 mg PO Q4H PRN PRN (Reason: pain/ fever) Qty: 30 RF: 0 azithromycin 250 mg Tablet 500 mg PO DAILY 3 Days Qty: 6 RF: 0 Continued bisacodyl 5 MG tablet,delayed release (DR/EC) 5 mg PO ONCE Qty: 10 RF: 0 Discontinued ondansetron HCl 4 MG tablet 4 mg PO Q6H Qty: 10 RF: 0 Discharge Instructions Instructions: Laparoscopic Appendectomy (DC), Community Acquired Pneumonia (DC) Additional Instructions: Please return to the ER if you develop; fevers >101.5 Nausea or Vomiting Increasing abdominal pain Increasing Cough or shortness of breath Activity: No lifting >20 lb x 2 weeks Diet: as tolerated Other: May shower No soaking in a bath tub for 1 week Referrals: Mildred Adair MD [ [facility] STAFF PHYSICIAN] - (Follow up with Dr. Adair or MICKIE Ramos ( [facility]) in 2 weeks) Activity:: No lifting >20 lb x 4 weeks Equipment/Supplies:: No Equipment Needed Diet:: As Tolerated Discharge Orders Discharge Orders: Discharge Order (Routine); Ordered 01/31/18 Ordered By: Mildred Adair Exam Const General: cooperative, comfortable and no acute distress Resp Effort & Inspection: normal respiratory effort Auscultation: clear to auscultation bilaterally Cardio Rate: regular rate Rhythm: regular rhythm Heart Sounds: no gallops, no murmurs and no rubs GI Inspection: incision (c/d/i) Palpation: soft Auscultation: normal bowel sounds DS: Data Vitals/I&O Vitals and I&O: Vital Signs Temperature 99.0 F 01/31/18 15:30 Temperature Source Tympanic 01/31/18 15:30 Pulse 77 01/31/18 15:30 Pulse Rhythm Regular 01/31/18 08:05 Respiratory Rate 18 01/31/18 15:30 Respiratory Effort Non-Labored 01/31/18 08:05 Respiratory Depth Normal 01/31/18 08:05 Respiratory Pattern Normal 01/31/18 08:05 Blood Pressure 124/81 01/31/18 15:30 Blood Pressure Position Sitting 01/28/18 15:01 Pulse Oximetry 96 01/31/18 15:30 Respiratory End-tidal CO2 31 01/28/18 20:18 Oxygen Delivery Method Room Air 01/31/18 15:30 Oxygen Flow Rate 0 01/31/18 15:30 Pain Level 0 01/31/18 11:36 Comment 01/30/18 06:12 Intake & Output 01/30/18 01/31/18 01/31/18 23:59 11:59 23:59 Intake Total 1660 / 1804 960 / 1230 270 / 1230 Output Total 400 / 400 Balance 1660 / 1204 560 / 830 270 / 830 Intake: IV 1300 / 1344 600 / 870 270 / 870 Oral 360 / 460 360 / 360 Output: Urine 400 / 400 Other: Urine Color Yellow Urine Appearance Clear Clear Urine Odor Normal Comment Void x 1 in toilet Pt voiding independently. Voiding Methods Toilet Toilet PFSH Social History Smoking/Tobacco Use Status: Never alcohol intake: current alcohol intake frequency: a few times a month substance use type: does not use
--- NOTE | 2018-01-31 15:53 | PDOC.CMDIS ---
- If Service Date Differs Date of service: 01/31/18 Time of Service: 15:53 LACE Index Scoring Tool - Questions: Length of Stay (in days): 2 Acuity (Admit via E.D.?): Yes E.D. Visits: 1 - Answers: Total Score: 6 Risk of Readmission: Low Risk Care Management Discharge Reason for Hospitalization: Acute Appendicitis Discharge Plan: Nate will discharge home when medically ready per MD. Anticipate patient will discharge with no services. Nate will be sent home with three days worth of abx from the [facility] pharmacy. He will transport via private vehicle with a co-worker from the [place]. Patient/Family Education Needs: Discharge education, any limitations, and follow up plan of care. Ask Me Three discussion.
--- NOTE | 2018-01-31 15:56 | CMDISCH_ITS ---
- If Service Date Differs Date of service: 01/31/18 Time of Service: 15:53 LACE Index Scoring Tool - Questions: Length of Stay (in days): 2 Acuity (Admit via E.D.?): Yes E.D. Visits: 1 - Answers: Total Score: 6 Risk of Readmission: Low Risk Care Management Discharge Reason for Hospitalization: Acute Appendicitis Discharge Plan: Nate will discharge home when medically ready per MD. Anticipate patient will discharge with no services. Nate will be sent home with three days worth of abx from the [facility] pharmacy. He will transport via private vehicle with a co-worker from the [place]. Patient/Family Education Needs: Discharge education, any limitations, and follow up plan of care. Ask Me Three discussion.
== END 2018-01-31 17:14 | disposition home or self-care (01) | DRG 341 ==
LOC: ER 17:43 → SUR 18:23 → MS 20:27
PROVIDERS: Admitting Provider Surgery; Emergency Provider Physician Assistant; PCP Nurse Practitioner; Visit Provider Surgery
PROC: 0DTJ4ZZ Resection of Appendix, Percutaneous Endoscopic Approach (ICD-10-PCS; CPT 44970; principal; 2018-01-28 17:30)
DX: K35.30 Acute appendicitis with localized peritonitis, without perforation or gangrene (principal); J18.1 Lobar pneumonia, unspecified organism; R09.02 Hypoxemia
CPT/HCPCS: 44970; 36415; 80053; 87880; 94618; 96361; 96365; 96368; 99222; 99285; NC; 71046; 74177; 81003; 85025; 85379; 87070; 88304; 94640; G0378; J0456; J0696; J1100; J1885; J2405; J7613; J7620